=== PATIENT | female | born 1990 | race Caucasian/White ===

== ENCOUNTER 2019-02-14 06:04 | Emergency (ER) | payer SELFPAY ==
[2019-02-14 06:36] VITALS: BP 127/77
--- NOTE | 2019-02-14 07:33 | ER Document Report ---
HPI - HPI Patient complains to provider of: nausea Time Seen by Provider: 02/14/19 07:19 Pain Level: 2 Context: 28-year-old well-appearing female presents to the emergency department with chief complaint of nausea. She was seen at another hospital on Tuesday evening after having intractable nausea and vomiting and a normal work-up. She was prescribed Phenergan and states that it has been working. She says her symptoms have greatly improved and she only has mild nausea at this time. She is concerned because her son started having some random vague symptoms over the last week and she is concerned that they may be suffering from "rat poisoning". She says that they have a mild problem where she is staying but denies any rodent feces ingestion or inadvertent contact. She said that maintain good hygiene. No mold exposure. She denies any fevers or chills, headaches, neck stiffness, acute shortness of breath or chest pain, abdominal pain, vomiting, diarrhea or constipation, urinary symptoms. No other complaints - REPRODUCTIVE Reproductive: DENIES: : Past Medical History - Social History Smoking Status: Never Smoker Family History: None Vertical Provider Document - CONSTITUTIONAL Notes: PHYSICAL EXAMINATION: Reviewed vital signs and charting by RN GENERAL: Alert, interacts well. No acute distress. HEAD: Normocephalic, atraumatic. EYES: Pupils equal and round. Extraocular movements intact. ENT: Oral mucosa moist, tongue midline. NECK: Full range of motion. Trachea midline. LUNGS: Clear to auscultation bilaterally, no wheezes, rales, or rhonchi. No respiratory distress. HEART: Regular rate and rhythm. No murmur ABDOMEN: soft, non-tender. No distention. Bowel sounds present EXTREMITIES: Moves all 4 extremities spontaneously. No edema, No cyanosis. PSYCH: Normal affect, normal mood. SKIN: Warm, dry, normal turgor. No rashes or lesions noted. - INFECTION CONTROL TRAVEL OUTSIDE OF THE [place] IN LAST 30 DAYS: No Course - Re-evaluation Re-evalutation: 02/14/19 07:30 Overall very well-appearing with a normal physical exam. Patient was just overly concerned and admits that she was googling symptoms. No obvious abnormalities on physical exam and her symptoms have greatly improved and the trajectory of her previous illness is going in the right direction. She is very well hydrated. At this time no intervention is needed and she is stable for discharge. - Vital Signs Vital signs: Temp Pulse Resp BP Pulse Ox 98 F 74 16 127/77 H 98 02/14/19 06:34 02/14/19 06:34 02/14/19 06:34 02/14/19 06:34 02/14/19 06:34 Discharge - Discharge Clinical Impression: Nausea Condition: Good Disposition: HOME, SELF-CARE Additional Instructions: You were seen in the emergency department this morning for nausea. Based on the history he gave and the fact that you are feeling much better from your previous illness this is all very reassuring things are going in the right direction. He can continue to take the Phenergan as needed for nausea and I do not recommend any diet restrictions at this time. Your symptoms should resolve over the next couple of days. If you pass out, start developing intractable nausea or vomiting again, have severe abdominal pain, have bloody vomitus or bloody diarrhea, or you have any other concerning symptoms please immediately return to the emergency department.
== END 2019-02-14 08:00 | disposition home or self-care (01) ==
LOC: ER 06:04
DX: R11.0 Nausea (principal)
CPT/HCPCS: 99283